=== PATIENT | male | born 1985 | race Caucasian/White ===

== ENCOUNTER 2025-03-04 15:01 | Emergency (ER) | payer BC ==
[~2025-03-04] VITALS: Ht 177.8 cm; Wt 93.2 kg
[~2025-03-04 15:01] MED LIST: IBUP-1984 PO; NO HOME MEDS
[2025-03-04 15:09] VITALS: TEMP 98.5
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
[2025-03-04] MEDS ORDERED: AMOX-117 PO (16:07)
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
[2025-03-04 17:09] VITALS: BP 119/81; PULSE 71; RESP 18; O2SAT 100
== END 2025-03-04 17:14 | disposition home or self-care (01) ==
LOC: ER 15:01
DX: S20.20XA Contusion of thorax, unspecified, initial encounter (principal); S61.258A Open bite of other finger without damage to nail, initial encounter; Y04.1XXA Assault by human bite, initial encounter; Y93.89 Activity, other specified; Y92.89 Other specified places as the place of occurrence of the external cause; Y99.8 Other external cause status
CPT/HCPCS: 71100; 73140; 99284